=== PATIENT | female | born 1975 | race African-American/Black ===

== ENCOUNTER → 2019-06-08 | Outpatient (CLI) | payer OTHER ==
[~2019-06-08] MED LIST: ACTICIN 5% CREA60 G1 TOP; CLONAZEPAM 1 MG1 M1 PO; GLUCOTROL5 MG PO; HYDRALAZINE 10M10 MG GT; JANUVIA25 MG PO; LANTUS100 UNIT/M SUBQ; LEVOTHYROXIN0.175 MG PER TUBE; NAPROSYN500 MG PO; VITAMIN D1000 UNI1 PO
== END ==
LOC: RAD 08:48
DX: Z12.31 Encounter for screening mammogram for malignant neoplasm of breast (principal)

== ENCOUNTER → 2019-06-09 | Outpatient (CLI) | payer OTHER | LOC: ULTRA 08:13 | DX: R22.31 Localized swelling, mass and lump, right upper limb (principal) ==

== ENCOUNTER → 2019-06-12 | Outpatient (CLI) | payer OTHER | LOC: ULTRA 10:05 | DX: N63.20 Unspecified lump in the left breast, unspecified quadrant (principal); R92.2 Inconclusive mammogram ==